=== PATIENT | female | born 1950 | race Caucasian/White ===

== ENCOUNTER 2021-07-12 13:06 | Outpatient (REF) | payer MEDICARE, SELFPAY ==
[2021-07-13 18:26] LABS: Lyme Abs Screen <0.90 index
[2021-07-14 05:32] LABS: IgA 242 mg/dL (70-320); IgG 833 mg/dL (600-1540); IgM 107 mg/dL (50-300)
[2021-07-14 14:35] LABS: Anti Nuclear Antibody Screen NEGATIVE (NEGATIVE)
[2021-07-16 15:43] LABS: Cardiolipin IgG Ab <2.0 GPL-U/mL; Cardiolipin IgM Ab <2.0 MPL-U/mL
== END 2021-07-12 13:07 | disposition home or self-care (01) ==
LOC: HO.LAB 13:06
PROVIDERS: PCP Family Medicine; Visit Provider Psychiatry & Neurology Neurology
DX: G43.109 Migraine with aura, not intractable, without status migrainosus (principal)
CPT/HCPCS: 36415; 82784; 86038; 86039; 86147; 86617; 86618